=== PATIENT | female | born 1985 | race Two or more races ===

== ENCOUNTER 2020-09-05 14:45 | Emergency (ER) | payer OTHER ==
[~2020-09-05] VITALS: Ht 160 cm; Wt 69.5 kg
[2020-09-05 16:41] LABS: INFLUENZA A PATIENT NEGATIVE (NEGATIVE); INFLUENZA B PATIENT NEGATIVE (NEGATIVE)
--- NOTE | 2020-09-05 16:53 | EKG ---
[facility] [address] [place] [address] Test Date: 2020-09-05 Test Time: 15:09:42 Pat Name: ARIN OREILLY Department: Room: Gender: F Clinical Pharmacy Specialist: : [id number] Requested By: KAYLENE MCCABE Order Number: [id number] Reading MD: Measurements Intervals [place] Rate: 73 P: 45 NH: 126 QRS: 57 QRSD: 84 T: 55 QT: 370 QTc: 411 Interpretive Statements SINUS RHYTHM NORMAL ECG RI6.01 No previous ECG available for comparison
--- NOTE | 2020-09-05 16:58 | RAD ---
XR CHEST 1V Clinical Indication: Reason: pui,22 / Spl. Instructions: / History: Comparison: None. Findings: The cardiomediastinal silhouette is normal. Lungs are clear. There is no pneumothorax. No pleural eff usion is appreciated. No acute bone abnormality. IMPRESSION: No acute cardiopulmonary process. Electronically signed by: Raphael Sheehan MD (09/05/2020 4:55 PM) [id number]
[2020-09-05 17:01] VITALS: BP 125/70
--- NOTE | 2020-09-05 17:26 | ED.ADGEN ---
Past Medical History Past Medical History: No Pertinent History Past Surgical History: No Surgical History Smoking Status: Never Smoker Alcohol Use: None General Adult EDM: Chief Complaint: COUGH HPI: HPI: Patient is a 35 year old female who presents to the emergency department with complaints of shortness of breath, generalized body aches, fever, headache, nausea, chills, and sweaty palms for the last month. Patient reports concern of COVID-19 infection. She reports that she was exposed to Covid by a cousin of hers 2 weeks ago. The patient reports that she currently has a friend that is dying from COVID-19. She denies any chest pain, palpitations, vision changes, abdominal pain, vomiting, diarrhea, or rash. The patient speaks limited Irish therefore the [employer] image assembler line was used to speak with the patient. She currently rates her pain 8 out of 10 on the pain scale describes as generalized body aches. She denies any alleviating factors. Review of Systems: Review of Systems: Complete ROS is negative unless otherwise noted in HPI. Allergies: Allergies: Allergies Coded Allergies Type Severity Reaction Last Updated Verified No Known Drug Allergies 09/05/20 No Physical Exam: PE: See Above Constitutional: Well developed, well nourished, no acute distress, non-toxic appearance, anxious. [] HENT: Normocephalic, atraumatic, bilateral external ears normal, nose normal. [] Eyes: PERRLA, EOMI, conjunctiva normal, no discharge. [] Neck: Normal range of motion, no stridor. [] Cardiovascular:Heart rate regular rhythm, no edema Lungs & Thorax: Respirations even and unlabored, no retractions, no respiratory distress Abdomen: soft, no tenderness Skin: Warm, dry, no erythema, no rash. [] Extremities: No cyanosis, ROM intact, no edema. [] Neurologic: Alert and oriented X 3, normal motor, normal sensory, no focal deficits noted. [] Psychologic: Affect normal, judgement normal, mood anxious Current Patient Data: Labs: Laboratory Tests Test 09/05/20 15:00 09/05/20 15:51 POC Urine HCG, Qualitative Hcg negative (Negative) Influenza Type A Antigen Negative (NEGATIVE) Influenza Type B Antigen Negative (NEGATIVE) Vital Signs: Vital Signs Date Time Temp Pulse Resp B/P (MAP) Pulse Ox O2 Delivery O2 Flow Rate FiO2 09/05/20 17:01 72 16 125/70 (88) 100 Room Air 09/05/20 14:52 99.0 99.0 EKG: EK-sinus rhythm, rate 73, no STEMI, normal EKG, read by Dr. Enriquez [] Heart Score: Risk Factors: Risk Factors: DM, Current or recent (<one month) smoker, HTN, HLP, family history of CAD, obesity. Risk Scores: Score 0 - 3: 2.5% MACE over next 6 weeks - Discharge Home Score 4 - 6: 20.3% MACE over next 6 weeks - Admit for Clinical Observation Score 7 - 10: 72.7% MACE over next 6 weeks - Early Invasive Strategies Radiology/Procedures: Radiology/Procedures: PROCEDURE: CHEST AP ONLY XR CHEST 1V Clinical Indication: Reason: pui,22 / Spl. Instructions: / History: Comparison: None. Findings: The cardiomediastinal silhouette is normal. Lungs are clear. There is no pneumothorax. No pleural effusion is appreciated. No acute bone abnormality. IMPRESSION: No acute cardiopulmonary process. [] Course & Med Decision Making: Course & Med Decision Making Pertinent Labs and Imaging studies reviewed. (See chart for details) 35-year-old female presented to the emergency department with concerns of COVID- 19 infection. Work-up included a chest x-ray, Covid swab, EKG, and influenza testing. Patient's vital signs are stable in the emergency department. Her chest x-ray was unremarkable. Rapid influenza test was negative. EKG showed no changes. I advised the patient that her COVID-19 test results are not available yet. I provided her with written quarantine instructions in Kazakh. She was encouraged to return to the emergency room if her breathing became labored or her fever did not respond to Tylenol or ibuprofen. Patient verbalized an understanding of home care, medications, follow-up, and return to ED instructions and was in agreement with the plan of care. [] Kar Disclaimer: Kar Disclaimer: This electronic medical record was generated, in whole or in part, using a voice recognition dictation system. Departure Departure Impression: Primary Impression: Person under investigation for COVID-19 Additional Impressions: Generalized body aches Cough in adult Disposition: 01 DC HOME SELF CARE/HOMELESS Condition: STABLE Referrals: NO PCP (PCP) Patient Instructions: Cough, Adult, [id number] Additional Instructions: Definicin Se le realiz la prueba de deteccin del COVID-19 o se le diagnostic dicha enfermedad. Es nani infeccin ocasionada por un nuevo tipo de coronavirus. En la mayora de los casos, el COVID-19 provoca sntomas similares a los del resfriado. En algunas personas, puede ocasionar sntomas ms graves, lor problemas respiratorios. No existe un tratamiento para el virus COVID-19. El cuerpo elimina la infeccin con el tiempo. El cuidado personal ayuda a aliviar el malestar. Pasos que debe seguir 1. Cuidados personales Descanse cuando sea necesario. Los hbitos saludables pueden ayudarlo a sentirse mejor. Algunas medidas para lograr cambios incluyen lo siguiente: - Elija alimentos saludables, lor frutas y verduras. Denisa abundante cantidad de agua lyudmila todo el da. - Duerma dayday por la noche. - Si fuma, intente no hacerlo. [place] ayudar a mejorar la respiracin. - Evite el alcohol. 2. Mantenga sanos a los dems El virus puede contagiarse a otras personas. Cada vez que estornuda o tose, se liberan gotitas. Las gotitas pueden entrar en la boca, la nariz o los ojos de las personas que se encuentran cerca de usted y ocasionar la infeccin. Para reducir las probabilidades de contagiar el virus COVID-19 a otros, tenga en cuenta lo siguiente: - Qudese en casa el tiempo que el mdico se lo indique. Es posible que deba quedarse en casa hasta que la enfermedad desaparezca. Salga nicamente para recibir atencin mdica o en beto de urgencia. - Evite las reas pblicas, los eventos o el transporte pblico. No reanude las actividades laborales o escolares hasta que el mdico lo autorice. - Llame previamente si necesita asistir a un centro mdico. Avise que es posible que haya contrado COVID-19. [place] ayudar a que le indiquen adonde debe dirigirse. Michael pueden pedirle que use nani mscara facial cuando vaya al consultorio. Si llama a los servicios de asistencia mdica de urgencias, avseles que es posible que haya contrado COVID-19. Mientras est en casa: - Evite el contacto directo con otras personas. Mantngase a nani distancia aproximada de 2 metros. Si es posible, pasen la mayor parte del tiempo en rodriguez separadas. - Use nani mscara facial si estar en contacto directo con otras personas, por ejemplo, si compartir nani habitacin o un vehculo. - Pida a alguien que limpie las superficies comunes de la casa. Limpie picaportes, mesadas y lavamanos con limpiadores domsticos todos los damon. - Al toser o estornudar, cbrase con un pauelo de papel. Despus de usarlo, deschelo de inmediato. Si no tiene un pauelo de papel, tosa o estornude en el pliegue del codo. - Lvese las jose luis con frecuencia. Lvese las jose luis despus de estornudar o toser. Lvese con agua y jabn lyudmila, al menos, 20 segundos. Si no dispone de agua y jabn, use un limpiador de jose luis a base de alcohol. - No cocine para otros. Evite compartir objetos personales, lor tenedores, cucharas o cepillos de dientes. - Mientras est enfermo, evite el contacto directo con las mascotas. No hay indicios de si el virus se transmite a las mascotas. Esta es nani medida de seguridad que debe tenerse en cuenta hasta que se sepa ms acerca de diana virus. El aislamiento puede ser frustrante. La interaccin social puede ayudar. Mantngase en contacto con amigos y familiares por telfono u otros medios tecnolgicos. Puede interactuar con otras personas en el hogar, jovita mantenga nani distancia moran de aproximadamente 2 metros. Seguimiento Las pruebas para confirmar la presencia del COVID-19 pueden demorar algunos damon. Es posible que deba seguir los pasos mencionados anteriormente hasta que estn los resultados de las pruebas. Lo llamarn del consultorio mdico para saber si jacobo habido algn cambio en espinoza maye. Tambin le avisarn cuando pueda volver a estar cerca de otras personas. Problemas a los que debe estar atento Comunquese con el mdico si no se recupera segn lo previsto o si tiene problemas lor los siguientes: - Dificultad para respirar - Dolor de pecho - Empeoramiento de los sntomas Si cadence que tiene nani urgencia, llame a los servicios de asistencia mdica de urgencias de inmediato. [facility] from [facility] Health Problem Qualifiers KAYLENE MCCABE FUR MATCHER Sep 05, 2020 17:26
--- NOTE | 2020-09-07 17:33 | NUR ---
IP: Informed pt of negative COVID test. Pt verbalized understanding.
== END 2020-09-05 17:30 | disposition home or self-care (01) ==
LOC: ER 14:45
DX: M79.10 Myalgia, unspecified site (principal); Z20.822 Contact with and (suspected) exposure to COVID-19; R05 Cough; R06.02 Shortness of breath; R50.9 Fever, unspecified; R11.0 Nausea; R51.9 Headache, unspecified
CPT/HCPCS: 71045; 81025; 87804; 93005; 99285; U0003; C9803